=== PATIENT | female | born 1990 | race Caucasian/White ===

== ENCOUNTER 2020-04-25 13:21 | Outpatient (REF) | payer OTHER, SELFPAY | END 2020-04-25 13:22 | disposition home or self-care (01) | LOC: HO.LAB 13:21 | PROVIDERS: Visit Provider Internal Medicine | DX: Z20.828 Contact with and (suspected) exposure to other viral communicable diseases (principal) | CPT/HCPCS: C9803; U0003 ==

== ENCOUNTER 2024-07-13 10:33 | Emergency (ER) | payer BC, SELFPAY ==
--- NOTE | ~2024-07-13 | XR_ITS ---
EXAMINATION: XR ANKLE, RIGHT CLINICAL INFORMATION: fall/injury COMPARISON: None available. TECHNIQUE: AP, lateral, and mortise views of the right ankle. FINDINGS: Soft tissue contusion/edema lateral malleolus. No acute cortical disruption or malalignment. No lytic or blastic lesions. XR/XR ankle RT min 3V IMPRESSION: Soft tissue contusion/hematoma, lateral malleolus. No acute fracture or dislocation. Electronically signed by: Talib Chopra MD 07/13/2024 11:47 AM [facility] MICHAEL
--- NOTE | ~2024-07-13 | XR_ITS ---
EXAMINATION: XR FOOT, RIGHT CLINICAL INFORMATION: fall/injury COMPARISON: None available. TECHNIQUE: AP, lateral, and oblique views of the right foot. FINDINGS: No acute cortical disruption or malalignment. No lytic or blastic lesions. No subcutaneous edema. No metallic or radiopaque foreign body. XR/XR foot RT min 3V IMPRESSION: No acute fracture or dislocation. Electronically signed by: Talib Chopra MD 07/13/2024 11:50 AM [facility]
[2024-07-13 10:48] VITALS: BP 127/81; PULSE 80; RESP 16; TEMP 36.7; O2SAT 97; BMI 31.0
--- NOTE | 2024-07-13 16:58 | ED_ITS ---
HPI - Extremity Injury (Lower) General Chief Complaint: Extremity Injury, Lower Stated Complaint: Fall r ankle pain Time Seen by Provider: 07/13/24 16:27 Source: patient Mode of arrival: ambulatory Limitations: no limitations History of Present Illness ED Provider: Susy De Paz NP HPI Narrative: Patient is a 34-year-old female presents emergency department for evaluation she had a mechanical slip and fall last night when going down the stairs. She was trying to step over a gate on the bottom step but missed the last step. She denies any preceding symptoms. She has been experiencing pain and swelling to the right lateral malleolus. She attempted to call her primary care doctor but was unable to get in to be seen. She was concerned as the swelling was still present today. She did not apply any ice to the area she states she has been elevating her leg as not use acetaminophen or ibuprofen. She had a walking boot available to her at home as her had broke his foot in the past. She states that she is able to tolerate walking with the boot on and it significantly helps to alleviate her pain. She denies any numbness tingling or cold sensation to the foot. She states that she bumped her head to the side of the wall but denies any loss of consciousness. No use of anticoagulants or known coagulation disorders. She is denying any headache, dizziness, lighth eadedness, vision changes, neck pain, neck stiffness. Related Data Allergies Allergy/AdvReac Type Severity Reaction Status Date / Time No Known Allergies Allergy Verified 07/13/24 10:49 Review of Systems Review of Systems: Yes all other systems are reviewed and are negative PMFSH Past Medical History Attestation statement: The following information was validated with the patient. Source: old records reviewed Physical Exam Vital Signs: Vital Signs: Last Vital Signs Temp 98.1 F 07/13/24 10:48 Pulse 80 07/13/24 10:48 Resp 16 07/13/24 10:48 BP 127/81 07/13/24 10:48 Pulse Ox 97 07/13/24 10:48 O2 Del Method Room Air 07/13/24 10:48 BMI result Body Mass Index 31.0 Appearance: Alert.?Oriented to person, place and time. No acute distress.?Normal affect. Head: Normocephalic Eyes: Pupils equal, round and reactive to light. EOMI. Conjunctiva and sclera normal? No Trujillo sign noted. No raccoon eyes noted ENT: No septal hematoma, nares patent bilaterally. External auditory canal normal tympanic membrane pearly valdivia and intact bilaterally. Dentition normal, no fractured teeth. No lesions or lacerations of oropharynx. Uvula midline. Moist mucous membranes. Neck: Normal inspection.? Neck supple.??No palpable tenderness, step-off, deformities. CVS: Heart sounds normal. Normal heart rate and rhythm.? Pulses normal.?? Respiratory: No respiratory distress.? Lung sounds clear to auscultation bilaterally?? Skin: Skin warm and dry.? Normal skin color.? Normal skin turgor.?? Extremities: Localized edema to the right lateral malleolus. 2+ DP/PT pulse bilaterally. No calf tenderness upon palpation. Neuro: Moves all extremities spontaneously. Sensation intact bilaterally. CN II- XII intact. No focal neuro deficits. Ambulatory with steady gait Medical Decision Making Medical Decision Making MDM Narrative: Patient is a 34-year-old female presents emergency department for evaluation after mechanical trip and fall there was head strike against the wall very light by her account. She has no focal neurological deficits no high-risk factors, unlikely to have ICH, SDH, would defer CT imaging of the head at this time she is entirely asymptomatic. Regarding her right ankle there is localized swelling tenderness upon palpation to the lateral malleolus. Extremity is neurovascularly intact distally. XR imaging was obtained prior to my assumption of care there is no evidence of fracture dislocation. Symptoms at this time most consistent with contusion/sprain. We discussed conservative treatment importance of ice over the next few days, elevation, compression, OTC analgesics including NSAIDs/acetaminophen, she may continue use of the walking boot that she has a available to her as she feels this greatly benefits for pain relief while ambulating and does not prefer to use any crutches. Outpatient follow-up with primary care doctor. Reviewed worrisome signs and symptoms that would warrant re-evaluation emergency department. All questions answered. Stable for discharge Differential Diagnosis Differential Diagnoses: The differential diagnosis associated with the presentation includes (See narrative above) Admission/Observation Consideration of admission/observation: Escalation of care including admission/observation considered (See narrative above) Independent Interpretation I performed an independent interpretation of an: Plain X-Ray (No fracture dislocation to the right ankle) Radiology Impression Discussion of test interpretation with radiology: I have reviewed the radiologist's reading. Radiologist Impression: XR/XR ankle RT min 3V IMPRESSION: Soft tissue contusion/hematoma, lateral malleolus. No acute fracture or dislocation. XR/XR foot RT min 3V IMPRESSION: No acute fracture or dislocation. Tests considered The following testing was considered but not selected: See narrative above Prescription Management I considered prescription management with: Pain Medication (Acetaminophen/ibuprofen) Discharge Plan Discharge Clinical Impression: Right ankle sprain Qualifiers: Encounter type: initial encounter Patient Disposition: Home, Self-Care Instructions: Ankle Sprain (ED), R.I.C.E. Treatment (ED) Additional Instructions: May continue using we walking boot her available during at home this may help to alleviate the pain especially when you were walking. Please be sure that you apply ice to the area for 10-15 minutes 3-4 times daily. Elevate your leg above the level of your chest at all times when UR able to while resting. You can take ibuprofen 200 mg, 3 tablets (600mg) every 6-8 hours as needed for pain, in addition to Tylenol 500 mg, 2 tablets (1,000mg) every 4-6 hours as needed for pain, but not to exceed 3 doses daily (3,000mg).? Follow-up with your primary care doctor. You may return with any new or worsening symptoms or concerns. Referrals: Physician,Unknown J [Primary Care Provider] - Stand Alone Forms: Work/School Release Print Language: Slovak
[2024-07-13 17:21] VITALS: BP 127/81; PULSE 80; RESP 16; TEMP 36.7; O2SAT 97
--- OUTSIDE RECORDS SUMMARY | 2024-07-13 17:27 | XMS_ITS | Clinical Summary ---
Author Organization [facility] [address] [place] [address] [place] [phone] Phone Care Team Providers Care Stagecraft Professor Name Role Phone Lyn Milian MD Primary Care Provider [phone] Allergies No known active allergies Medications Medication Sig Dispensed Refills Start Date End Date Status amphetamine-dextroamp hetamine (ADDERALL) 5 mg tablet Take 1 Tablet by mouth daily. Active busPIRone (BUSPAR) 15 mg tablet Take 1 Tablet by mouth 3 times daily. Active DULoxetine (CYMBALTA) [address] capsule Take 1 Capsule by mouth daily. Active fluticasone propionate (FLONASE) 50 mcg/actuation nasal spray 2 Sprays by Nasal route daily. 06/22/2021 Active hydrOXYzine HCL (ATARAX) 25 mg tablet Take 1 Tab by mouth 4 times daily as needed for Anxiety. 04/13/2020 Active metroNIDAZOLE (METROGEL) 0.75 % (37.5mg/5 gram) vaginal gel Insert vaginally at bedtime x 5 nights 09/26/2021 Active omeprazole (PriLOSEC) [address] capsule TAKE 1 CAPSULE BY MOUTH DAILY FOR 360 DAYS. 05/15/2021 Active valGANciclovir (VALCYTE) 50 mg/mL oral solution Take by mouth. 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 02/27/2013 Immunizations Name Administration Dates Next Due HPV 9-valent (Gardisil) 9yo to less than 46yo 02/02/2016 Influenza trivalent, 0.5mL, preservative free (Fluarix; FluLaval; Fluzone) ages 6mo and older (Afluria) 3 years and older 08/17/2019,04/13/2014,02/15/2011 PPD Test 05/12/2015, 5,01/17/2013,2012 Pfizer SARS-CoV-2 COVID-19, mRNA, LNP-S, preservative free 11/05/2020,10/15/2020 Tdap Tetanus diptheria acell ular pertussis (Boostrix; Adacel) 7yo and older 05/29/2017,01/15/2013 Surgical History Surgery Date Site/Laterality Comments OTHER SURGICAL HISTORY PROCEDURE: DENIES PREVIOUS SURGERY Medical History Medical History Date Comments Oral herpes DX:Oral herpes ADH disorder 02/27/2013 DX:ADH disorder Covid-19 06/22/2021 DX:COVID-19; COM MENT: 06/15/21 Family History Medical History Relation Name Comments Diabetes Aunt 1 maternal Breast cancer Aunt 2 Maternal Aunt Ovarian cancer Aunt 2 Maternal Aunt Other: Other Father pt states live r checks because he drinks too much No Known Problems Maternal Grandfather pt states i dont know him Arthritis Maternal Grandmother Diabetes Maternal Grandmother Hypertension Maternal Grandmother Thyroid disease Maternal Grandmother No Known Problems Mother Heart attack Mother's side 1 bipolar dioo rder Seizures Mother's side 2 Breast cancer Mother's side 3 great grand mother Diabetes Paternal Grandfather Heart attack Paternal Grandfather Other: Liver Cancer Paternal Grandfather No Known Problems Paternal Grandmother pt states she knows she has health problems but doesnt know what Cervical cancer Neg Hx Prostate cancer Neg Hx Uterine cancer Neg Hx Relation Name Status Comments Aunt 1 Aunt 2 Maternal Aunt Alive Father Alive Maternal Grandfather Maternal Grandmother Alive Mother Alive Mother's side 1 Mother's side 2 Mother's side 3 Paternal Grandfather Paternal Grandmother Alive Social History Tobacco Use Types Packs/Day Years Used Date Smoking Tobacco: Former Smokeless Tobacco: Never Alcohol Use Standard Drinks/Week Comments No 0 (1 standard drink = 0.6 oz pur e alcohol) Sex and Gender Information Value Date Recorded Sex Assigned at Not on file Gender Identity Not on file Sexual Orientation Not on file Job Start Date Occupation Industry Not on file Not on file Not on file Obstetrics History Last Filed Vital Signs Vital Sign Reading Time Taken Comments Blood Pressure 128/70 01/16/2024 8:54 AM EDT Pulse 63 01/16/2024 8:54 AM EDT Temperature - - Respiratory Rate - - Oxygen Saturation - - Inhaled Oxygen Concentration - - Weight 73.9 kg (163 lb) 01/16/2024 8:54 AM EDT Height 154.9 cm (5' 1 ) 09/26/2021 10:39 AM EDT Body Mass Index 30.8 09/26/2021 10:39 AM EDT Plan of Treatment Health Maintenance Due Date Last Done Comments Hepatitis B Vaccines (1 of 3 - 19+ 3-dose series) 2010 HPV Vaccines (2 - 3-dose series) 03/01/2016 02/02/2016 Depression Screening 05/13/2022 Social Influencers of Health Screening 05/13/2022 COVID-19 Vaccine (3 - 2023-2 5 season) 2024 11/05/2020, 10/15/2020 Influenza Vaccine (#1) 2024 0, 04/13/2014, 02/15/2011 Cholesterol Screening (Lipid Panel) 08/19/2024 08/20/2019 DTaP,Tdap,and Td Vaccines (3 - Td or Tdap) 05/29/2027 05/29/2017, 01/15/2013 Cervical Cancer Screening: HPV 01/15/2029 01/16/2024 Hepatitis C Screening Completed 01/24/2016 HIV Screening Completed 12/19/2016 HIB Vaccines Aged Out No longer eligi ble based on patient's age to complete this topic Hepatitis A Vaccines Aged Out No long er eligible based on patient's age to complete this topic IPV Vaccines Aged Out No longer eligi ble based on patient's age to complete this topic MMR Vaccines Aged Out No longer eligi ble based on patient's age to complete this topic Meningococcal ACWY Vaccine Aged Out N o longer eligible based on patient's age to complete this topic Pneumococcal Vaccine: Pediatrics (0 to 5 Years) and At-Risk Patients (6 to 64 Years) Aged Out No longer eligible b ased on patient's age to complete this topic RSV Immunization Patients Under 20 months Aged Out No longer eligible b ased on patient's age to complete this topic Varicella Vaccines Aged Out No longer eligible based on patient's age to complete this topic Procedures Procedure Name Priority Date/Time Associated Diagnosis Comments HPV Routine 01/16/2024 LIPID PANEL Routine 08/20/2019 HIV SCREENING Routine 12/19/2016 HEPATITIS C SCREENING Routine 01/24/2016 from Last 3 Months or Most Recently Relevant to Health Maintenance Results * Cervical Cancer Screening: HPV (01/16/2024) Pathologist [facility] Cervical Cancer Screening: HPV abstracted ,negative Historical Provider MD MARIETTA Rothman * (ABNORMAL) Lipid panel (08/20/2019) [facility] LDL/HDL Ratio 3 0 - 4 Triglycerides 84 0 - 150 mg/dL Cholesterol 122 0 - 200 mg/dL HDL 37(A) 40 mg/dL LDL Cholesterol 69 0 - 100 mg/dL Blood Venous blood specimen / Unknown Historical Provider LAB BLOOD ORDERAB LES * HIV Screening (12/19/2016) [facility] HIV Screening Abstracted Historical Provider MD MARIETTA CONRAD E * Hepatitis C Screening (01/24/2016) [facility] Hepatitis C Screening Abstracted Historical Provider MD MARIETTA Rothman from Last 3 Months or Most Recently Relevant to Health Maintenance Care Teams Stagecraft Professor Relationship Specialty Start Date End Date Lyn Milian MD [address] [place] [id number] PCP - General Internal Medicine 04/30/24
== END 2024-07-13 17:24 | disposition home or self-care (01) ==
PROVIDERS: Emergency Provider Emergency Medicine Emergency Medical Services
DX: S93.401A Sprain of unspecified ligament of right ankle, initial encounter (principal); M25.571 Pain in right ankle and joints of right foot; W10.9XXA Fall (on) (from) unspecified stairs and steps, initial encounter; Y93.9 Activity, unspecified; Y92.9 Unspecified place or not applicable; Y99.8 Other external cause status
CPT/HCPCS: 73610; 73630; 99282; 99283

== ENCOUNTER → 2024-07-13 11:05 | Outpatient (BNV) | payer OTHER, SELFPAY | PROVIDERS: Visit Provider Radiology Diagnostic Radiology | DX: M25.571 Pain in right ankle and joints of right foot (principal) | CPT/HCPCS: 73610; 73630 ==